=== PATIENT | female | born 1965 | race Caucasian/White ===

== ENCOUNTER 2017-03-14 23:32 | Inpatient (IN) | payer MEDICARE, OTHER ==
[~2017-03-14] VITALS: Ht 157.5 cm; Wt 72.2 kg
[2017-03-15 02:00] VITALS: BP 125/80
[2017-03-15 02:18] VITALS: BP 125/80
[2017-03-15] MEDS ORDERED: NS + 20MEQ KCL 1,000 ML IV SCH ×2 (04:47→12:30)
[2017-03-15] MEDS ORDERED: HYDROcodone/APAP 5/325 TABLET PO PRN (05:00)
[2017-03-15] MEDS ORDERED: morphine SULFATE 10 MG/ML, 1ML IVPush PRN (05:00)
[2017-03-15] MEDS ORDERED: DOCUSATE 100 MG CAPSULE PO PRN (05:00)
[2017-03-15] MEDS ORDERED: ACETAMINOPHEN 325 MG TABLET PO PRN (05:00)
[2017-03-15] MEDS ORDERED: ONDANSETRON 2MG/ML, 2ML IVPush PRN (05:00)
[2017-03-15] MEDS ORDERED: POLYETHYLENE GLYCOL 17 GM PACKET PO PRN (05:00)
[2017-03-15] MEDS ORDERED: ENOXAPARIN 40 MG/0.4 ML SQ SCH (05:00)
[2017-03-15 05:04] LABS: BLOOD UREA NITROGEN 9 mg/dL (7-18)
[2017-03-15 05:16] LABS: IS PT STATUS REG ER OR PRE ER? NO
[2017-03-15] MEDS ORDERED: ASPIRIN 325 MG TABLET EC PO SCH (06:00)
[2017-03-15 07:37] VITALS: BP 109/73
[2017-03-15 08:24] LABS: IS PT STATUS REG ER OR PRE ER? NO
[2017-03-15] MEDS ORDERED: REGADENOSON 0.4 MG/5 ML SYRINGE ONE (09:15)
[2017-03-15] MEDS ORDERED: POTASSIUM CHLORIDE 40 MEQ in SODIUM CHLORIDE 0.9% 500 ML IV ONE ×2 (09:30→13:00)
[2017-03-15 12:10] VITALS: BP 122/76
[2017-03-15 19:41] VITALS: BP 125/80
== END 2017-03-15 20:24 | disposition home or self-care (01) | DRG 282 ==
LOC: 5SO 03-15 01:41
PROVIDERS: ADMIT Family Medicine; ATTEND Family Medicine
DX: I21.4 Non-ST elevation (NSTEMI) myocardial infarction (principal); E83.42 Hypomagnesemia; R20.0 Anesthesia of skin
CPT/HCPCS: 36415; 78452; 80048; 80061; 82306; 82607; 83036; 83735; 84439; 84443; 84484; 93017; J1650; J2785; J3480; A9502; C9898; J7040